=== PATIENT | female | born 1945 | race Caucasian/White ===

== ENCOUNTER → 2024-04-02 14:21 | Outpatient (REF) | payer OTHER, SELFPAY | LOC: RAD 14:21 | PROVIDERS: ATTENDING PHYSICIAN Family Medicine | DX: R09.89 Other specified symptoms and signs involving the circulatory and respiratory systems (principal); Z87.891 Personal history of nicotine dependence; D32.9 Benign neoplasm of meninges, unspecified | CPT/HCPCS: 70450; 71250; 93880 ==

== ENCOUNTER → 2024-10-12 14:44 | Outpatient (REF) | payer OTHER, SELFPAY | LOC: HWRAD 14:44 | PROVIDERS: ATTENDING PHYSICIAN Physician Assistant Medical | DX: J98.9 Respiratory disorder, unspecified (principal) | CPT/HCPCS: 71046 ==